=== PATIENT | female | born 1965 | race Caucasian/White ===

== ENCOUNTER → 2018-02-26 | Day surgery (SDC) | payer OTHER ==
[~2018-02-26] MED LIST: LIDOCAINE 2% JELLY 5 ML TUBE ONE
== END ==
LOC: END 07:29
PROVIDERS: ATTEND Surgery
DX: K21.9 Gastro-esophageal reflux disease without esophagitis (principal); K44.9 Diaphragmatic hernia without obstruction or gangrene
CPT/HCPCS: 91010; 91034